=== PATIENT | male | born 1975 | race Caucasian/White ===

== ENCOUNTER → 2017-07-29 | Emergency (ER) | payer OTHER ==
[~2017-07-29] VITALS: Ht 180.3 cm; Wt 74.8 kg
== END | disposition home or self-care (01) ==
LOC: ED 02:14
DX: E87.1 Hypo-osmolality and hyponatremia (principal); G40.89 Other seizures
CPT/HCPCS: 26720; 31720; 36600; 70450; 71045; 80053; 81001; 82803; 85025; 94002; 96361; 96374; 96375; 99291; 99292; G0480; J2060; J7030